=== PATIENT | female | born 1975 | race Caucasian/White ===

== ENCOUNTER → 2020-08-27 | Outpatient (CLI) | payer OTHER ==
[2020-08-27 13:20] LABS: ABSOLUTE NEUTROPHILS 6.7 thou/uL (1.4-8.2); BASOPHILS 0.2 % (0.0-2.0); EOSINOPHILS 0.7 % (0.0-3.0); HEMATOCRIT 46.6 % (37.0-47.0); HEMOGLOBIN 15.5 gm/dL (12.0-15.0); LYMPHOCYTES 28.5 % (24.0-44.0); MCH 29.3 pg (26.0-34.0); MCHC 33.2 g/dL (28.0-37.0); MCV 88.3 fL (80.0-100.0); MONOCYTES 4.1 % (1.0-8.0); POLYS 66.5 % (36.0-66.0); RBC 5.27 mil/uL (4.20-5.00); RDW 13.9 % (10.5-14.5)
[2020-08-27 13:29] LABS: ALBUMIN 4.4 g/dL (3.4-5.0); ANION GAP 6 mmol/L (7-16); BUN 8 mg/dL (7-18); CALCIUM 9.2 mg/dL (8.5-10.1); CHLORIDE 102 mmol/L (98-107); CHOLESTEROL 172 mg/dL (<200); CO2 29 mmol/L (21-32); CREATININE 0.9 mg/dL (0.6-1.0); GLUCOSE 99 mg/dL (74-106); HDL CHOLESTEROL 68 mg/dL (>40); LDL CHOLESTEROL 81 mg/dL (<100); POTASSIUM 3.8 mmol/L (3.5-5.1); SGOT 18 U/L (15-37); SGPT 25 U/L (30-65); SODIUM 137 mmol/L (136-145); TC:HDL 2.5 Ratio (Not establshd); TOTAL BILIRUBIN 0.5 mg/dL (0.2-1.0); TOTAL PROTEIN 7.6 g/dL (6.4-8.2); TRIGLYCERIDE 115 mg/dL (<150); VLDL 23 mg/dL (<40)
[2020-08-27 13:54] LABS: FOLIC ACID 12.5 ng/mL (8.6-58.9)
[2020-08-27 15:31] LABS: PLATELET COUNT 317 thou/uL (150-400)
[2020-08-29 09:08] LABS: ANTI-DNA SCREEN 2 IU/mL (0-9); ANTI-RNP <0.2 AI (0.0-0.9)
== END ==
LOC: RAD 12:17
PROVIDERS: ATTEND Nurse Practitioner
DX: M47.812 Spondylosis without myelopathy or radiculopathy, cervical region (principal); M79.2 Neuralgia and neuritis, unspecified; M79.10 Myalgia, unspecified site; R20.0 Anesthesia of skin

== ENCOUNTER → 2020-09-19 | Outpatient (CLI) | payer OTHER | LOC: RAD 09:55 | PROVIDERS: ATTEND Specialist | DX: M47.26 Other spondylosis with radiculopathy, lumbar region (principal) ==

== ENCOUNTER → 2020-12-13 | Outpatient (CLI) | payer OTHER | LOC: MRI 10:32 | PROVIDERS: ATTEND Physical Medicine & Rehabilitation Sports Medicine | DX: M51.24 Other intervertebral disc displacement, thoracic region (principal); M48.04 Spinal stenosis, thoracic region ==

== ENCOUNTER → 2021-04-09 | Outpatient (CLI) | payer OTHER ==
[~2021-04-09] MED LIST: BENTYL 20 MG TA20 M1 PO; HYDROCODONE-AP1 EAC6 PO; IBUPROFEN 800800 M1 PO; NABUMETONE 500500 M2 PO; NEURONTIN300 MG PO; NORCO5 PO; PEPCID20 MG PO; PRILOSEC 20 MG20 MG PO; RELAFEN500 M1 PO; TIZANIDINE HCL4 M2 PO; VITAMIN D31250 MC1 PO; XANAX 0.25 MG0.25 MG PO; ZOFRAN ODT4 MG DISSOLVE
[2021-04-11 14:08] LABS: GLOBULIN TOTAL 2.5 g/dL (2.2-3.9); M-SPIKE Not Observed g/dL (Not Observed)
[2021-04-12 02:06] LABS: HEPATITIS B SURFACE AG Negative (Negative)
== END ==
LOC: LAB 15:21
DX: R53.83 Other fatigue (principal); M54.50 Low back pain, unspecified; H04.123 Dry eye syndrome of bilateral lacrimal glands; M25.559 Pain in unspecified hip; R20.2 Paresthesia of skin; Z79.899 Other long term (current) drug therapy

== ENCOUNTER 2021-04-23 19:05 | Emergency (ER) | payer OTHER ==
[~2021-04-23] VITALS: Ht 162.6 cm; Wt 70.3 kg
[2021-04-23 20:43] LABS: BASOPHILS 0.5 % (0.0-2.0); EOSINOPHILS 1.7 % (0.0-3.0); HEMATOCRIT 41.3 % (37.0-47.0); HEMOGLOBIN 14.4 gm/dL (12.0-15.0); LYMPHOCYTES 26.3 % (24.0-44.0); MCH 29.9 pg (26.0-34.0); MCHC 34.9 g/dL (28.0-37.0); MCV 85.8 fL (80.0-100.0); PLATELET COUNT 233 thou/uL (150-400); POLYS 66.5 % (36.0-66.0); RBC 4.81 mil/uL (4.20-5.00); RDW 13.4 % (10.5-14.5); WBC 7.5 thou/uL (4.0-11.0)
[2021-04-23 20:47] LABS: URINE BILIRUBIN NEGATIVE (Negative); URINE BLOOD NEGATIVE (Negative); URINE CLARITY CLEAR; URINE COLOR YELLOW; URINE GLUCOSE-RANDOM* NEGATIVE (Negative); URINE KETONES NEGATIVE (Negative); URINE LEUKOCYTES-REFLEX NEGATIVE (Negative); URINE NITRITE-REFLEX NEGATIVE (Negative); URINE PROTEIN (DIPSTICK) NEGATIVE (Negative); URINE UROBILINOGEN 0.2 E.U./dl (0.2-1.0)
[2021-04-23 21:01] LABS: CALCIUM 8.7 mg/dL (8.5-10.1); CREATININE 0.7 mg/dL (0.6-1.0); POTASSIUM 4.6 mmol/L (3.5-5.1)
[2021-04-23 21:06] LABS: ALBUMIN 3.9 g/dL (3.4-5.0); TOTAL BILIRUBIN 0.4 mg/dL (0.2-1.0); TOTAL PROTEIN 7.1 g/dL (6.4-8.2)
[2021-04-23] MEDS ORDERED: FLEXERIL PO (21:26)
[2021-04-23] MEDS ORDERED: MEDROLDOSEPACK PO (21:26)
[2021-04-23] MEDS ORDERED: MOBIC7.5 MG PO (21:26)
[2021-04-23 21:45] VITALS: BP 119/62
== END 2021-04-23 21:50 | disposition home or self-care (01) ==
LOC: ER 19:05
PROVIDERS: Nurse Practitioner
DX: S16.1XXA Strain of muscle, fascia and tendon at neck level, initial encounter (principal); F17.210 Nicotine dependence, cigarettes, uncomplicated; Z90.49 Acquired absence of other specified parts of digestive tract; Z90.710 Acquired absence of both cervix and uterus; Z90.89 Acquired absence of other organs; Z98.51 Tubal ligation status; Z88.0 Allergy status to penicillin; Z88.1 Allergy status to other antibiotic agents; X58.XXXA Exposure to other specified factors, initial encounter; Y93.89 Activity, other specified; Y92.89 Other specified places as the place of occurrence of the external cause; Y99.8 Other external cause status

== ENCOUNTER 2021-05-16 14:45 | Emergency (ER) | payer OTHER ==
[~2021-05-16] VITALS: Ht 160 cm; Wt 71.7 kg
[~2021-05-16 14:45] MED LIST changes: +FLEXERIL PO; +MEDROLDOSEPACK PO; +MOBIC7.5 MG PO
[2021-05-16] MEDS ORDERED: NEURONTIN 300M300 M2 PO (14:58)
[2021-05-16] MEDS ORDERED: XANAX2 MG PO (14:59)
[2021-05-16] MEDS ORDERED: TIZANIDINE HCL4 M2 PO (14:59)
[2021-05-16 15:44] LABS: ABSOLUTE NEUTROPHILS 4.4 thou/uL (1.4-8.2); EOSINOPHILS 1.7 % (0.0-3.0); HEMATOCRIT 41.1 % (37.0-47.0); LYMPHOCYTES 35.1 % (24.0-44.0); MCH 29.3 pg (26.0-34.0); MCHC 34.1 g/dL (28.0-37.0); MCV 85.7 fL (80.0-100.0); MONOCYTES 4.9 % (1.0-8.0); POLYS 57.3 % (36.0-66.0); RDW 13.3 % (10.5-14.5); WBC 8.5 thou/uL (4.0-11.0)
[2021-05-16 15:51] LABS: CALCIUM 9.2 mg/dL (8.5-10.1); CREATININE 0.6 mg/dL (0.6-1.0)
[2021-05-16 15:58] LABS: POTASSIUM 4.3 mmol/L (3.5-5.1)
[2021-05-16] MEDS ORDERED: VALIUM10 MG PO (16:51)
[2021-05-16 16:55] LABS: PLATELET COUNT 288 thou/uL (150-400)
[2021-05-16 17:01] VITALS: BP 112/68
--- NOTE | 2021-05-17 07:05 | EKG ---
[address] [place] [address] [place] [address] ELECTROCARDIOGRAM REPORT Name: NAYELI STEINBERG TED [id number] Admission: 05/16/21 Attend Phys: Discharge: 05/16/21 Date of : 75 Report #: [id number] [facility] ED Test Date: 2021-05-16 Test Time: 15:14:36 Pat Name: NAYELI STEINBERG Department: Room: Gender: F Rn Gastroenterology: [place] : 1975 Requested By: Jerod Mendoza Order Number: [id number] MD: Arley Wang Measurements Intervals [place] Rate: 84 P: 53 [place]: 124 QRS: -52 QRSD: 108 T: 38 QT: 380 QTc: 450 Interpretive Statements Sinus rhythm Probable left atrial enlargement Left axis deviation Low voltage, precordial leads No previous ECG available for comparison Electronically Signed On 05-17-2021 7:05:13 [employer]LL [employer]OL [employer]TER by Arley Wang [email or web address] <ELECTRONICALLY SIGNED> By: Arley Wang MD, [facility] 05/17/21 0705 1514 1514 Arley Wang MD, FACC /EPI
== END 2021-05-16 17:03 | disposition home or self-care (01) ==
LOC: ER 14:45
PROVIDERS: Emergency Medicine
DX: F41.0 Panic disorder [episodic paroxysmal anxiety] (principal); F17.210 Nicotine dependence, cigarettes, uncomplicated; Z90.711 Acquired absence of uterus with remaining cervical stump; Z98.890 Other specified postprocedural states; Z90.49 Acquired absence of other specified parts of digestive tract; Z79.1 Long term (current) use of non-steroidal anti-inflammatories (NSAID); Z79.891 Long term (current) use of opiate analgesic; Z79.899 Other long term (current) drug therapy; Z88.1 Allergy status to other antibiotic agents; Z88.6 Allergy status to analgesic agent; Z88.8 Allergy status to other drugs, medicaments and biological substances

== ENCOUNTER → 2021-06-06 | Outpatient (CLI) | payer OTHER ==
[~2021-06-06] MED LIST changes: +NEURONTIN 300M300 M2 PO; +VALIUM10 MG PO; +XANAX2 MG PO
== END ==
LOC: MRI 10:47
PROVIDERS: ATTEND Psychiatry & Neurology Neuromuscular Medicine
DX: M47.812 Spondylosis without myelopathy or radiculopathy, cervical region (principal); M51.24 Other intervertebral disc displacement, thoracic region; R20.2 Paresthesia of skin; M79.642 Pain in left hand; M79.641 Pain in right hand; R20.0 Anesthesia of skin; F41.9 Anxiety disorder, unspecified

== ENCOUNTER → 2021-06-09 | Outpatient (CLI) | payer OTHER | LOC: MRI 10:56 | PROVIDERS: ATTEND Psychiatry & Neurology Neuromuscular Medicine | DX: I65.23 Occlusion and stenosis of bilateral carotid arteries (principal); R20.2 Paresthesia of skin; F41.9 Anxiety disorder, unspecified; R20.0 Anesthesia of skin; M51.24 Other intervertebral disc displacement, thoracic region; M79.641 Pain in right hand; M79.642 Pain in left hand ==

== ENCOUNTER → 2021-06-12 | Outpatient (CLI) | payer OTHER ==
--- NOTE | ~2021-06-12 | EEG ---
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 EEG was done by placing the electrode by standard 10-20 system of electrode placement. Both referential and sequential montages were used for recording. Background activity in this patient's EEG is about 11 Hz and 40 microvolt. The patient became drowsy, that is associated with bilateral slowing and vertex sharp waves. Photic stimulation is unremarkable. Throughout the record, no active epileptiform activity was noticed. IMPRESSION: This patient's EEG is within normal limits. Thank you very much for this referral. By: 1443 1616 Chau Rubio MD /nt
== END ==
LOC: NUC 08:41
PROVIDERS: ATTEND Psychiatry & Neurology Neuromuscular Medicine
DX: R20.2 Paresthesia of skin (principal); F41.9 Anxiety disorder, unspecified; M51.24 Other intervertebral disc displacement, thoracic region; M79.641 Pain in right hand; M79.642 Pain in left hand; R20.0 Anesthesia of skin